=== PATIENT | female | born 1995 | race Caucasian/White ===

== ENCOUNTER 2023-11-24 15:57 | Emergency (ER) | payer BC ==
[~2023-11-24] VITALS: Ht 160 cm; Wt 62.7 kg
[2023-11-24] MEDS ORDERED: ketorolac trometh. 30mg/ml inj. IM ONE (16:35)
[2023-11-24 17:10] VITALS: BP 118/59; PULSE 88; RESP 16; TEMP 98; O2SAT 99
[2023-11-24] MEDS: ketorolac tromethamine 15mg/ml inj. IM ONE (17:12)
== END 2023-11-24 17:20 | disposition home or self-care (01) ==
LOC: ER 15:58
DX: M79.671 Pain in right foot (principal); M25.571 Pain in right ankle and joints of right foot
CPT/HCPCS: 73630; 96372; 99283; J1885; A6449